=== PATIENT | male | born 1975 | race Caucasian/White ===

== ENCOUNTER 2016-10-02 14:29 | Emergency (ER) | payer MEDICAID, OTHER ==
[~2016-10-02] VITALS: Ht 170.2 cm; Wt 96.0 kg
[2016-10-02 14:58] VITALS: Ht 170.2 cm; Wt 96.0 kg
[2016-10-02] MEDS ORDERED: LIDOCAINE 1%/EPI 30 ML INJ INJ STA ×2 (15:24→15:53)
[2016-10-02] MEDS ORDERED: LIDOCAINE 1% (MDV) 20 ML INJ SC ONE (16:00)
--- NOTE | 2016-10-02 16:42 | ERD ---
ER Documentation Chief Complaint Date/Time DATE: 10/02/16 TIME: 16:32 Chief Complaint left eyebrow lac HPI This 40-year-old male presents emergency room with left eyebrow laceration after he barely bumped with metal object on accident. He did not suffer any loss of consciousness and believes that he did not even had a head injury. He only has he is wondering if he needs it sutured. He's had no neurological deficits he can still see well out of both eyes. ROS All systems reviewed and are negative except as per history of present illness. Allergies Allergies: Coded Allergies: No Known Allergy (Unverified , 10/02/16) PMhx/Soc Medical and Surgical Hx: pt denies Medical Hx, pt denies Surgical Hx Hx Alcohol Use: No Hx Substance Use: No Hx Tobacco Use: No Smoking Status: Never smoker Physical Exam Vitals Vital Signs Date Time Temp Pulse Resp B/P Pulse Ox O2 Delivery O2 Flow Rate FiO2 10/02/16 14:58 98.0 59 18 119/63 99 Physical Exam Const: [] No distress. Head: Small flap laceration to the left eyebrow area with perpendicular laceration areas each 1 cm in length. No active bleeding Eyes: Normal Conjunctiva EOMI, PERRLA ENT: Normal External Ears, Nose and Mouth. Neck: Full range of motion..~ No meningismus. Neuro: Alert and oriented 3, cranial nerves II through XII intact, no cerebellar deficits, normal gait Results 24 hrs Current Medications Medications (Trade) Dose Ordered Sig/Vicente Route PRN Reason Start Time Stop Time Status Last Admin Dose Admin Lidocaine/ Epinephrine (Xylocaine 1%/ Epi) 30 ml ONCE STAT INJ 10/02/16 15:24 10/02/16 15:44 DC Lidocaine (Xylocaine 1% (Mdv) 20 ml) 20 ml ONCE ONCE SC 10/02/16 16:00 10/02/16 16:01 DC Lidocaine/ Epinephrine (Xylocaine 1%/ Epi) 30 ml ONCE STAT INJ 10/02/16 15:53 10/02/16 15:54 DC Procedures/MDM Laceration. No: Left eyebrow with 2 cm perpendicular flap laceration with each dimension being 1 cm. Complicated by proximity and inclusion of the superior portion of the right eyelid. Area was regular with normal saline. Anesthetized with 1 mL of lidocaine with epinephrine. 4 simple interrupted 5-0 Prolene sutures were used to close the laceration. Patient told procedure without complications. Hemostasis was achieved. Right eyebrow laceration with no loss of consciousness. Sutured in the ER. Normal neurological exam and no visual deficits. Discharging with surgeons return to ER in 5 days as well as primary care follow-up. Departure Diagnosis: Primary Impression: Facial laceration Condition: Stable Patient Instructions: Laceration, Face (Suture Or Tape) Referrals: [facility] YOU HAVE RECEIVED A MEDICAL SCREENING EXAM AND THE RESULTS INDICATE THAT YOU DO NOT HAVE A CONDITION THAT REQUIRES URGENT TREATMENT IN THE EMERGENCY DEPARTMENT. FURTHER EVALUATION AND TREATMENT OF YOUR CONDITION CAN WAIT UNTIL YOU ARE SEEN IN YOUR DOCTORS OFFICE WITHIN THE NEXT 1-2 DAYS. IT IS YOUR RESPONSIBILITY TO MAKE AN APPOINTMENT FOR FOLOW-UP CARE. IF YOU HAVE A PRIMARY DOCTOR --you should call your primary doctor and schedule an appointment IF YOU DO NOT HAVE A PRIMARY DOCTOR YOU CAN CALL OUR PHYSICIAN REFERRAL HOTLINE AT IF YOU CAN NOT AFFORD TO SEE A PHYSICIAN YOU CAN CHOSE FROM THE FOLLOWING [facility] [address] [facility]. [facility] [address] [facility] [employer] [address] [facility] [address] [facility]. [facility] [address] [facility]. [facility]. [address] Additional Instructions: Regrese a la surendra de emergencia en 5 watts para quitar las puntadas. Llame al doctor MAANA y jie tab DONTAE PARA DENTRO DE 2-3 WATTS.Dgale a la secretaria que nosotros le instruimos hacer esta dontae.Avise o llame si roman condicin se empeora antes de la dontae. Regresa aqui si peor o no mejor. VALERIE MONTANEZ DO Oct 02, 2016 16:42
== END 2016-10-02 16:44 | disposition home or self-care (01) ==
LOC: FTE 14:29
DX: S01.112A Laceration without foreign body of left eyelid and periocular area, initial encounter (principal); W22.8XXA Striking against or struck by other objects, initial encounter; Y92.9 Unspecified place or not applicable
CPT/HCPCS: 12011; Z7610